=== PATIENT | female | born 1990 | race Caucasian/White ===

== ENCOUNTER 2018-04-11 11:29 | Emergency (ER) | payer OTHER, SELFPAY ==
[2018-04-11 11:33] VITALS: BP 120/83; PULSE 80; RESP 14; TEMP 36.1; O2SAT 100; BMI 27.3
--- NOTE | 2018-04-11 12:43 | DI.US.S_ITS ---
PROCEDURE: US PELVIC COMPLETE INDICATIONS: 6wk bleeding, pt in ED WR, please go to US room. TECHNIQUE: Real-time scanning was performed of the pelvic organs, with image documentation. Additional endovaginal scanning was necessary due to incomplete visualization of the adnexal and endometrial structures by transabdominal scanning. COMPARISON: None. FINDINGS: Transabdominal scanning: Limited scanning through the kidneys shows no hydronephrosis. No pathologic free abdominal or pelvic fluid. Endovaginal scanning: Uterus: Uterus is normal in size at 8.6 x 4.3 x 5.2 cm. The endometrium measures 6 mm in combined thickness. 3.5 x 0.8 x 1.5 cm echogenic material is noted within the endometrial cavity. No intrauterine gestational sac is seen. Ovaries: Right ovary measures 2.4 x 1.6 x 2.3 cm in size. Left ovary measures 3 x 2.3 x 1.3 cm in size. No adnexal mass. No gross solid renal lesion. Normal flow is seen in bilateral ovaries on color Doppler images. No pelvic free fluid is seen. IMPRESSION: 1. No evidence of intrauterine gestational sac or pole. Echogenic material within the endometrium, which may represent blood clot versus retained product secondary to spontaneous . Clinical followup and followup with serial beta hCG level is recommended. 2. No adnexal mass or gross ectopic gestational sac. Normal appearing bilateral ovaries. Dictated by: Stanley Degroot M.D. on 04/11/2018 at 15:09 Approved by: Stanley Degroot M.D. on 04/11/2018 at 15:14
[2018-04-11 13:10] LABS: Add Manual Diff / Slide Review NO; Basophils Percent Auto 0.6 % (0-2); Eosinophils Percent Auto 1.1 % (2-4); Hematocrit 37.9 % (36-46); Hemoglobin 12.9 g/dL (12.0-16.0); Lymphocytes Percent Auto 28.8 % (25-40); Mean Corpuscular Hemoglobin 28.7 PG (26-34); Mean Corpuscular Volume 84.5 fL (80-100); Monocytes Percent Auto 7.6 % (3-14); Neutrophils Absolute Auto 3500 /uL (3000-5900); Neutrophils Percent Auto 61.9 % (50-75); Platelet Count 248 X10^3/uL (150-400); Red Blood Cell Count 4.49 X10^6/uL (4.0-5.2); Red Cell Distribution Width 12.7 % (11.6-14.8); White Blood Cell Count 5.7 X10^3/uL (4.5-11.0)
[2018-04-11 13:38] LABS: HCG Quantitative /Beta subunit 25.82 mIU/mL
--- NOTE | 2018-04-11 15:07 | ED.PREGNANCY ---
HPI - <MG Hernandez - Last Filed: 04/11/18 22:11> General Chief complaint: Vaginal Bleeding Stated complaint: Possible Miscarriage Time Seen by Provider: 04/11/18 15:08 Source: patient Mode of arrival: ambulatory Limitations: no limitations History of Present Illness HPI Narrative: healthy 27-year-old female that is a nonsmoker that is approximately 6 2 para 1 weeks here for complaint of having cramping and vaginal bleeding approximately 1 pad every couple hours that started last night. Patient is concerned that she may be having a miscarriage. Besides the cramping she denies any abdominal pain. No flank pain. No urinary symptoms. Positive p.o. intake. No nausea or vomiting. She denies any other concerns or complaints at this time. She states that the she believes that her blood type is O-positive. Her OB is at the [facility]. Complaint: vaginal bleeding Related Data Home Medications Medication Instructions Recorded Confirmed No Known Home Medications 04/11/18 04/11/18 Allergies Allergy/AdvReac Type Severity Reaction Status Date / Time sulfamethoxazole Allergy Severe Hives Verified 04/11/18 11:35 [From Bactrim] trimethoprim [From Bactrim] Allergy Severe Hives Verified 04/11/18 11:35 Review of Systems <MG Hernandez - Last Filed: 04/11/18 22:11> Review of Systems All systems reviewed & are unremarkable except as noted in HPI and below Constitutional Denies chills, Denies fatigue, Denies fever(s), Denies lethargy and Denies weakness Eyes Denies change in vision, Denies eye discharge, Denies irritation and Denies loss of vision ENT Ears, Nose, Mouth, and Throat: Denies change in voice, Denies neck pain and Denies sore throat Cardiovascular Denies dyspnea and Denies dyspnea on exertion Respiratory Denies cough, Denies dyspnea, Denies dyspnea on exertion and Denies wheezing Gastrointestinal Gastrointestinal: Denies abdominal pain, Denies change in bowel habits, Denies diarrhea, Denies nausea and Denies vomiting Genitourinary Comments: Vaginal bleeding Musculoskeletal Denies neck pain Integumentary/Breasts Denies pruritus, Denies erythema, Denies rash and Denies wounds Neurologic Denies confusion, Denies loss of vision and Denies weakness Psychiatric Denies anxiety, Denies confusion, Denies depression, Denies homicidal ideation and Denies suicidal ideation Endocrine Denies fatigue and Denies flushing Allergic/Immunologic Denies wheezing PMFSH - <MG Hernandez - Last Filed: 04/11/18 22:11> Past Medical History Medical history: Reports no medical history Surgical history: Reports no surgical history Exam <MG Hernandez - Last Filed: 04/11/18 22:11> Initial Vital Signs Initial Vital Signs: Vital Signs Temperature 97.0 F L 04/11/18 11:33 Pulse Rate 80 04/11/18 11:33 Respiratory Rate 14 04/11/18 11:33 Blood Pressure 120/83 04/11/18 11:33 Pulse Oximetry 100 04/11/18 11:33 Const General: cooperative and well developed Nutritional Appearance: well nourished Orientation: alert, awake and oriented x3 HENMT Mouth: oral mucosae normal and moist mucous membranes Eyes Conjunctivae: conjunctivae normal Sclera: sclerae normal Pupils: PERRL EOM: EOM intact bilaterally Resp Effort & Inspection: normal respiratory effort, able to speak in complete sentences, no respiratory distress and no use of accessory muscles Auscultation: clear to auscultation bilaterally, no rales, no rhonchi and no wheezes Cardio Rate: regular rate Rhythm: regular rhythm Heart Sounds: no click, no gallops, no murmurs and no rubs Pulses: normal peripheral pulses GI Inspection: non-distended Palpation: soft, no hepatosplenomegaly, No guarding, No pulsatile mass and No tender Auscultation: normal bowel sounds General: No CVA tenderness Skin General: no rashes or lesions noted, No jaundice and No petechiae Neuro General: alert, oriented x3, gait normal and no focal motor deficits Speech: speech normal <Marga Flores DO - Last Filed: 04/12/18 08:35> Initial Vital Signs Initial Vital Signs: Vital Signs Temperature 97.0 F L 04/11/18 11:33 Pulse Rate 80 04/11/18 11:33 Respiratory Rate 14 04/11/18 11:33 Blood Pressure 120/83 04/11/18 11:33 Pulse Oximetry 100 04/11/18 11:33 Course <MG Hernandez - Last Filed: 09/28/18 22:11> Orders Ordered: ED Orders 04/11/18 15:35 Urine Culture Stat Urine Microscopic Stat Vital Signs - 8 hr 04/11/18 15:16 04/11/18 16:00 Pulse Rate 81 63 Respiratory Rate 16 Blood Pressure [Right Arm] 113/65 107/59 L Pulse Oximetry 96 97 <Marga Flores DO - Last Filed: 04/12/18 08:35> Orders Ordered: ED Orders 04/11/18 15:35 Urine Culture Stat Urine Microscopic Stat Vital Signs - 8 hr 04/11/18 15:16 04/11/18 16:00 Pulse Rate 81 63 Respiratory Rate 16 Blood Pressure [Right Arm] 113/65 107/59 L Pulse Oximetry 96 97 MDM - OB/Uterine Contractions <MG Hernandez - Last Filed: 04/11/18 22:11> Lab Data Result diagrams: 04/11/18 13:00 Lab Results 04/11/18 04/11/18 04/11/18 Range/Units 13:00 13:00 13:00 WBC 5.7 (4.5-11.0) X10^3/uL RBC 4.49 (4.0-5.2) X10^6/uL Hgb 12.9 (12.0-16.0) g/dL Hct 37.9 (36-46) % MCV 84.5 (80-100) fL MCH 28.7 (26-34) PG MCHC 34.0 (30-36) % RDW 12.7 (11.6-14.8) % Plt Count 248 (150-400) X10^3/uL Neut % (Auto) 61.9 (50-75) % Lymph % (Auto) 28.8 (25-40) % [place] % (Auto) 7.6 (3-14) % Eos % (Auto) 1.1 L (2-4) % Baso % (Auto) 0.6 (0-2) % Neut # (Auto) 3500 (8482-4432) /uL HCG, Quant 25.82 mIU/mL Urine RBC (0-5/HPF) Urine WBC (0-5/HPF) Ur Squamous Epith Cells Urine Bacteria (None) Ur Culture Indicated? Micro UA Comment Blood Type O Positive 04/11/18 Range/Units 15:35 WBC (4.5-11.0) X10^3/uL RBC (4.0-5.2) X10^6/uL Hgb (12.0-16.0) g/dL Hct (36-46) % MCV (80-100) fL MCH (26-34) PG MCHC (30-36) % RDW (11.6-14.8) % Plt Count (150-400) X10^3/uL Neut % (Auto) (50-75) % Lymph % (Auto) (25-40) % [place] % (Auto) (3-14) % Eos % (Auto) (2-4) % Baso % (Auto) (0-2) % Neut # (Auto) (3064-4676) /uL HCG, Quant mIU/mL Urine RBC 30-100/hpf H (0-5/HPF) Urine WBC 10-30/hpf H (0-5/HPF) Ur Squamous Epith Cells 1-5 /hpf Urine Bacteria None seen (None) Ur Culture Indicated? Specimen cultured Micro UA Comment Not Reportable Blood Type Imaging Data Ob ultrasound : Radiologist's impression: [address] [place] [address] Ultrasound Report Signed Patient: Francoise Baker [facility]#: [id number] : 1990Acct:[id number] Age/Sex: 27 / FDate of Service: 04/11/18 Loc: ED Accession Number: [id number] Procedure: US pelvic complete Ordering Provider: Marga Flores D.O. PROCEDURE: US PELVIC COMPLETE INDICATIONS: 6wk bleeding, pt in ED WR, please go to US room. TECHNIQUE: Real-time scanning was performed of the pelvic organs, with image documentation. Additional endovaginal scanning was necessary due to incomplete visualization of the adnexal and endometrial structures by transabdominal scanning. COMPARISON: None. FINDINGS: Transabdominal scanning: Limited scanning through the kidneys shows no hydronephrosis. No pathologic free abdominal or pelvic fluid. Endovaginal scanning: Uterus: Uterus is normal in size at 8.6 x 4.3 x 5.2 cm. The endometrium measures 6 mm in combined thickness. 3.5 x 0.8 x 1.5 cm echogenic material is noted within the endometrial cavity. No intrauterine gestational sac is seen. Ovaries: Right ovary measures 2.4 x 1.6 x 2.3 cm in size. Left ovary measures 3 x 2.3 x 1.3 cm in size. No adnexal mass. No gross solid renal lesion. Normal flow is seen in bilateral ovaries on color Doppler images. No pelvic free fluid is seen. IMPRESSION: 1. No evidence of intrauterine gestational sac or pole. Echogenic material within the endometrium, which may represent blood clot versus retained product secondary to spontaneous . Clinical followup and followup with serial beta hCG level is recommended. 2. No adnexal mass or gross ectopic gestational sac. Normal appearing bilateral ovaries. Dictated by: Stanley Degroot M.D. on 04/11/2018 at 15:09 Approved by: Stanley Degroot M.D. on 04/11/2018 at 15:14 MDM Narrative Medical decision making narrative: Ob ultrasound was obtained and shows no evidence of a gestational sac in the intrauterine. There is echogenic material within the endometrium this is blood clot versus retained product. Her HCG quantitative level was 25 today. signs and symptoms present as her having complete miscarriage. CBC and Chem panel were obtained were unremarkable. Urinalysis shows RBCs and also WBCs culture is pendinghowever patient is not having any symptoms will hold on treatment at this point. patient to follow up with OB in the next couple of days for re-evaluation and repeat HCG. [id number] ibuprofen as needed for any discomfort. For any worsening symptoms worsening bleeding return to the emergency room. <Marga Flores, - Last Filed: 04/12/18 08:35> Lab Data Lab Results 04/11/18 04/11/18 04/11/18 Range/Units 13:00 13:00 13:00 WBC 5.7 (4.5-11.0) X10^3/uL RBC 4.49 (4.0-5.2) X10^6/uL Hgb 12.9 (12.0-16.0) g/dL Hct 37.9 (36-46) % MCV 84.5 (80-100) fL MCH 28.7 (26-34) PG MCHC 34.0 (30-36) % RDW 12.7 (11.6-14.8) % Plt Count 248 (150-400) X10^3/uL Neut % (Auto) 61.9 (50-75) % Lymph % (Auto) 28.8 (25-40) % [place] % (Auto) 7.6 (3-14) % Eos % (Auto) 1.1 L (2-4) % Baso % (Auto) 0.6 (0-2) % Neut # (Auto) 3500 (0494-8317) /uL HCG, Quant 25.82 mIU/mL Urine RBC (0-5/HPF) Urine WBC (0-5/HPF) Ur Squamous Epith Cells Urine Bacteria (None) Ur Culture Indicated? Micro UA Comment Blood Type O Positive 04/11/18 Range/Units 15:35 WBC (4.5-11.0) X10^3/uL RBC (4.0-5.2) X10^6/uL Hgb (12.0-16.0) g/dL Hct (36-46) % MCV (80-100) fL MCH (26-34) PG MCHC (30-36) % RDW (11.6-14.8) % Plt Count (150-400) X10^3/uL Neut % (Auto) (50-75) % Lymph % (Auto) (25-40) % [place] % (Auto) (3-14) % Eos % (Auto) (2-4) % Baso % (Auto) (0-2) % Neut # (Auto) (8682-3636) /uL HCG, Quant mIU/mL Urine RBC 30-100/hpf H (0-5/HPF) Urine WBC 10-30/hpf H (0-5/HPF) Ur Squamous Epith Cells 1-5 /hpf Urine Bacteria None seen (None) Ur Culture Indicated? Specimen cultured Micro UA Comment Not Reportable Blood Type Discharge Plan Departure Patient Disposition: Home Clinical Impression: Miscarriage Discharge Date/Time: 04/11/18 16:13 Interventions: ED Discharge Assessment Last Done: 04/11/18 16:09 Instructions: DI for Miscarriage Activity Restrictions/Additional Instructions: was not seen inside the uterus on ultrasound today. Signs and symptoms presents as complete miscarriage. there is an area in the endometrium that is either a blood clot or retained products. Follow up with OB in the next couple days for re-evaluation. Use [id number] ibuprofen as needed for any discomfort. for any worsening bleeding or symptoms return to the emergency room. Prescriptions: No Action No Known Home Medications RF: 0 Referrals: [facility] [Provider Group] <Marga Flores, DO - Last Filed: 04/12/18 08:35> Cosign ED Attending Federicoature Attestation: I was immediately available in the department for consultation. Documentation has been reviewed. I agree with assessment and plan.
[2018-04-11 15:16] VITALS: BP 113/65; PULSE 81; RESP 16; O2SAT 96
[2018-04-11 15:44] LABS: Bacteria Urine None Seen
[2018-04-11 15:55] LABS: RBC Urine 30-100/HPF (0-5/HPF)
[2018-04-11 15:56] LABS: Culture Indicated Urine Specimen Cultured; Squamous Epithelial Cell Urine 1-5 /HPF; WBC Urine 10-30/HPF (0-5/HPF)
[2018-04-11 16:00] VITALS: BP 107/59; PULSE 63; O2SAT 97
== END 2018-04-11 16:13 | disposition home or self-care (01) ==
PROVIDERS: Emergency Medicine; Emergency Provider Nurse Practitioner Family
DX: O03.9 Complete or unspecified spontaneous abortion without complication (principal)
CPT/HCPCS: 36415; 76830; 76856; 81015; 84702; 85025; 86900; 86901; 87086; 99282; 99284